=== PATIENT | female | born 1945 | race Caucasian/White ===

== ENCOUNTER → 2021-10-20 | Outpatient (CLI) | payer MEDICARE | LOC: KOH-I 11:50 | DX: R06.02 Shortness of breath (principal); I48.0 Paroxysmal atrial fibrillation; R09.89 Other specified symptoms and signs involving the circulatory and respiratory systems; I28.8 Other diseases of pulmonary vessels; Z95.0 Presence of cardiac pacemaker | CPT/HCPCS: 71046 ==

== ENCOUNTER → 2021-10-27 | Outpatient (CLI) | payer MEDICARE | LOC: HEART 5 09:58 | DX: R06.89 Other abnormalities of breathing (principal); R06.00 Dyspnea, unspecified | CPT/HCPCS: 94060; 94729 ==